=== PATIENT | male | born 1960 | race Caucasian/White ===

== ENCOUNTER 2022-04-21 12:19 | Outpatient (CLI) | payer BC, SELFPAY ==
--- NOTE | ~2022-04-21 | US_ITS ---
EXAMINATION: US venous doppler LE RT DATE: 04/21/2022 13:09 INDICATION: Acute deep vein thrombosis of femoral vein of right lower extremity. TECHNIQUE: Grayscale ultrasound images without and with compression and Doppler ultrasound images of the right lower extremity veins were obtained. COMPARISON: None. FINDINGS: The visualized portions of right common femoral vein, profunda (deep) femoral vein, femoral vein, pop liteal vein, peroneal veins, posterior tibial veins, and greater saphenous vein outflow are patent. IMPRESSION: 1. No deep venous thrombosis. Reviewed, dictated and finalized at location A.
== END 2022-04-21 12:20 | disposition home or self-care (01) ==
PROVIDERS: PCP Physician Assistant Medical; Visit Provider Internal Medicine Hematology & Oncology
DX: I82.411 Acute embolism and thrombosis of right femoral vein (principal)
CPT/HCPCS: 93971

== ENCOUNTER 2022-12-24 15:51 | Outpatient (CLI) | payer OTHER, SELFPAY ==
--- NOTE | ~2022-12-24 | CT_ITS ---
EXAMINATION: CT brain w con DATE: 12/24/2022 16:35 INDICATION: Headache. Lightheadedness. Dizziness. TECHNIQUE: Computed tomography (CT) of the head was performed with 100 mL Omnipaque 350 intravenous c ontrast. The mA was adjusted according to patient size. Iterative reconstruction technique was employ ed. The dose-length product was 605.33 mGy-cm. COMPARISON: Brain MRI 04/22/2017, head CT 01/11/2009 FINDINGS: There is no intracranial hemorrhage, acute infarction, or abnormal intracranial mass lesion . The ventricles are normal in size. The orbits are normal. The mastoid air cells are normal. The par anasal sinuses are clear. IMPRESSION: 1. Normal brain. Reviewed, dictated and finalized at location A. IMPRESSION: 1. Normal brain.
[2022-12-24 16:23] LABS: Estimated Glomerular Filt Rate > 60
== END 2022-12-24 15:52 | disposition home or self-care (01) ==
PROVIDERS: PCP Physician Assistant Medical; Visit Provider Family Medicine
DX: R51.9 Headache, unspecified (principal); G89.29 Other chronic pain; R42 Dizziness and giddiness
CPT/HCPCS: 70460; Q9967

== ENCOUNTER 2023-08-24 08:00 | Outpatient (RCR) | payer OTHER, SELFPAY ==
--- NOTE | 2023-07-15 14:33 | PTOPEVAL1 ---
Assessment and note entered by Meghan Paulson, PT Evaluation Information Assessment Status Evaluation Diagnosis Pain in left shoulder, oth. postprocedural states Additonal Therapy conditions Abnormal posture Subjective Information RTC in December 2019, did PT mulitple months after this . Reports 5 months to get back to normal. Just started having problems again in left side for about 6 months. took a nose dive off a trailer and thinks maybe martha it. Has done some things to it once slipped in a trailer and reached up to grab to stabilize. No obvious injury times. Will get achy in the shoulder and in the outside of the chest right hand dominant Has muscle relaxers if pain gets to intense Reported Pain Level Pain Score 0: Self Report Assessment PT Clinical Summary Pt presents with left shoulder pain approx 2 years post rotator cuff surgery. Doesn't remember any specific trauma since then however notes two incidents in which may have led to this pain. Reports main is 0-4/10, will have aching in shoulder and into left ribfield. Demo's soft tissue adhesions left rib field, decreased thoracic motion, decreased left shoulder motion, decreased scapular motion, abnormal postures and tight musculature. Pt will benefit from physical therapy to address deficits and improve function without pain. Plan of Care Interventions Electrical Stimulation,Hot Pack/Cold Pack,Manual Therapy,Neuro Re-education,Patient/Caregiver Educati,Therapeutic Activities,Therapeutic Exercise,Self-Care/Home Management,Ultrasound PT Services Indicated Yes Treatment Frequency and 1-2x weekly x 8 weeks Duration These treatments will address the objective and functional deficits as defined above. The patient will be advanced safely and appropriately in order for the patient to progress towards his/her prior level of function. Additional exercises will be introduced and as well as a comprehensive home exercise program upon discharge, if needed, ?to ensure carryover of functional gains achieved in the clinic. This treatment plan has been reviewed and agreement upon by the patient.
--- NOTE | 2023-07-15 14:35 | OPREHPOC ---
Outpatient Therapy Plan of Care This is a Multidisciplinary Plan of Care that may contain components documented by all disciplines (PT, OT, and ST.) PT Problem 1 PT Problem #1 Knowledge Deficit PT Goal 1 Goal Pt will be independent in HEP Pt will verbalize understanding of diagnosis and prognosis Target Visit 8 PT Problem 2 PT Problem #2 Pain PT Goal 1 Goal Pt will report greatest pain level at 2/10 or less to improve ADLs Target Visit 8 PT Goal 2 Goal Pt will report resolution of pain to return to PLOF Target Visit 16 PT Problem 3 PT Problem #3 Impaired Range of Motion PT Goal 1 Goal Pt will demo AROM equal to unaffected UE Target Visit 16 PT Goal 2 Goal Pt will demo improved pectoralis major flexibliity to allow imprpved scapular mobility Target Visit 16
--- NOTE | 2023-08-12 09:30 | PCPTNOTE ---
Patient presented to clinic 0800 stating he thought his appointment was at that time but that he realized it was actually at 9 am. As he had to get to work, he rescheduled his reevaluation.
--- NOTE | 2023-08-24 08:50 | PTOPDC ---
Assessment and note entered by Meghan Paulson, PT Assessment Status Discharge Diagnosis Pain in left shoulder, oth. postprocedural states Subjective Information Pt reports at times will feel better but this weekend had pain in the left side of the chest. Doesn't know if it is the way he slept, doesn't feel like he did anything physical. States with the cold damp weather arm will ache at times. Reports thinks pain is a little less often but when it hurts it is the same amount Today is sore in the armpit area. Reports hasn't had to take muscle relaxers in a while Reports exercises at home are going well Self-perceived improvement: 3-4% still aggravating Reported Pain Level Pain Score 2: Self Report Assessment PT Clinical Summary Pt has attended therapy consistently for left shoulder pain, reports being consistent in his exercises. However pt shows negligible progress and also reports only feeling 3-4% improved overall. Special testing today shows (+) Speeds test and audible clunk with [place] testing for impingement. Discussed plan of care and it was decided pt would benefit more from imaging/futher assessment from next level of care provider. Thus patient is being discharged at this time due to lack of progress and possible anatomical abnormalities requiring higher level of care.
== END 2023-08-24 11:16 | disposition home or self-care (01) ==
LOC: ANHHIPT 08:00
PROVIDERS: PCP Physician Assistant Medical; Visit Provider Family Medicine
DX: M25.512 Pain in left shoulder (principal); Z98.890 Other specified postprocedural states
CPT/HCPCS: 97014; 97110; 97112; 97140; 97162; 97750; G0283

== ENCOUNTER 2024-07-24 08:31 | Outpatient (CLI) | payer OTHER, SELFPAY ==
[2024-07-31 11:27] VITALS: BMI 27.3
--- NOTE | 2024-07-31 11:27 | WPDSLEEPSTUD ---
Sleep Study Date of Study: 07/24/24 Ordering Provider: David Friedman APRN Interpreting Physician: Pat Matthews DO Sleep Study Type: Split Polysomnogram Height: 1.7 m Weight: 79.379 kg Body Mass Index: 27.3 Neck Circumference (inches): 16.5 [place]: 10 Reason for Sleep Study Excessive daytime sleepiness Sleep History The patient is a 64-year-old male with previously diagnosed sleep apnea that had a sleep study ordered by the Pulmonary group [facility] the patient could read qualify for treatment. The patient occasionally awakens at night with heartburn, belching or cough. He frequently snores and is frequently loud enough that others complain. He occasionally has trouble sleeping when he has a cold. He rarely wakes up gasping for air throughout the night. He denies having breathing problems at night observed by himself or others. He rarely sweats excessively at night. He rarely has heart palpitations or irregular heartbeats during the night. He occasionally falls asleep during the day but rarely while driving. He denies sleep paralysis and cataplexy. He occasionally has trouble at school or work due to sleepiness. He occasionally experiences vivid dreamlike scenes upon awakening or falling asleep. He rarely feels afraid of going to sleep. He denies having nightmares. He occasionally remembers his dreams. He occasionally has thoughts racing through his mind. He rarely feels sad or depressed. He occasionally has anxiety. He occasionally has muscular tension. He rarely notices parts of his body jerk. He denies kicking during the night. He occasionally has crawling and aching feelings in his legs and occasionally has leg pain during the night. He occasionally grinds his teeth during sleep but rarely awakens with morning jaw pain. He is occasionally bothered by pain during the day and occasionally awakened by pain during the night. He occasionally wakes up feeling stiff in the morning. He occasionally wakes up with sore or achy muscles. He frequently wakes up with pain in the neck, spine or other joints. He goes to bed between 8:30-9 p.m. on weekdays and between 9-9:30 p.m. on the weekends. It takes him 45-60 minutes to fall asleep. He wakes up 3-5 times throughout the night for unknown reasons in the amount of time it takes for him to fall back asleep is variable. He typically gets 6-8 hours of sleep per night. He will stay in bed for 10-20 minutes after waking up to watch his. He currently lives with his female partner. He denies consuming any caffeinated beverages within 2 hours of bedtime. He denies engaging in physical exercise before bedtime. He will watch television before falling asleep. He denies taking naps in the afternoon or the evening. He consumes 2 caffeinated beverages per day. He quit smoking cigarettes 40 years ago. He consumes 1 alcoholic beverage per month. He denies recreational drug use. [facility] Past Medical History Medical History Hospital discharge follow-up Unstable angina Cellulitis Left shoulder pain Food poisoning Skin infection Low testosterone ROSALBA on CPAP 5-10 cm H2O, Provider Plus Dizziness Light headed Chronic headaches Squamous cell carcinoma Atypical nevi Skin growth Screening for cholesterol level Diaphoresis Viral gastroenteritis Prostatitis BPH (benign prostatic hyperplasia) Encounter for screening for malignant neoplasm of prostate History of esophageal stricture Anxiety Protein C deficiency DVT (deep venous thrombosis) R upper extremity 2016 R femoral 12/2021 History of basal cell carcinoma (BCC) Basal cell carcinoma of back High cholesterol Diverticulitis Hypertension Surgical History Surgical History History of appendectomy History of sinus surgery History of rotator cuff surgery left 2019 Family History Family History Sibling Cerebrovascular accident Sibling Protein C deficiency Other Diabetes mellitus Family history of heart disease in male family member before age 55 Family history of kidney disease Hypertension Social History Social History Smoking status: Former smoker Tobacco type: cigarettes Second hand tobacco smoke exposure: No Smoking end date: 08/22/86 Alcohol intake: current Alcohol use details: social Substance use: never Substance use type: does not use Do You Feel Safe in your Home?: Yes Lack of Transportation: No Lack of Food: Never True Current Housing: I Have Housing Concerned About Future Housing: No Difficulty Paying Gas/Electric Bills: No Difficulty Paying for Meds: No Currently Unemployed: No Education: High School Diploma/GED Difficulty w/ Childcare or Family Care: No Living arrangements: with family Additional living arrangements comments: girl friend Occupation/Education: occupation Gender identity (if verbalized by the patient): Male Sexual Orientation (if Verbalized by the Patient): Straight or Heterosexual Medications Home Medications ?Medication ?Instructions ?Recorded ?Confirmed ?Type diltiazem HCl 120 mg 120 mg PO DAILY 11/11/20 05/23/24 History capsule,extended release 24 hr, controlled (DILT-XR) fluticasone propionate 50 See Rx Instructions .Route 03/30/22 05/23/24 Rx mcg/actuation nasal .COMPLEX #48 grams spray,suspension lisinopril 10 mg tablet 20 mg PO DAILY 04/29/22 05/23/24 History folic acid 1 mg tablet 1 mg PO DAILY 06/09/22 05/23/24 History apixaban 2.5 mg tablet (Eliquis) 2.5 mg PO BID 08/13/22 05/23/24 History nitroglycerin 0.4 mg sublingual 0.4 mg sublingual Q5M PRN chest 01/05/24 05/23/24 Rx tablet pain #30 tabs pravastatin 40 mg tablet 40 mg PO DAILY #90 tabs 02/06/24 05/23/24 Rx escitalopram oxalate 5 mg tablet 5 mg PO DAILY #90 tabs 04/09/24 05/23/24 Rx lorazepam 0.5 mg tablet 0.5 mg PO QHS PRN sleep #30 tabs 04/09/24 05/23/24 Rx omeprazole 40 mg capsule,delayed 40 mg PO DAILY #90 caps 04/30/24 05/23/24 Rx release ondansetron 4 mg disintegrating 4 mg PO Q8H PRN nausea and 05/11/24 05/23/24 Rx tablet vomiting #10 tabs topiramate 25 mg capsule,extended 25 mg PO QHS 05/11/24 05/23/24 History release 24 hr eszopiclone 3 mg tablet 3 mg PO ONCE #1 tablet 05/18/24 05/23/24 Rx cyclobenzaprine 5 mg tablet 5 mg PO TID PRN muscle spasm #30 05/23/24 05/23/24 Rx tabs ezetimibe 10 mg tablet 10 mg PO DAILY #90 tabs 06/28/24 Rx Sleep Procedure A full night split study using the [employer] multi-channel system recorded the standard physiologic parameters including EEG, EOG, submentalis EMG, anterior tibialis EMG, EKG, body position, nasal and oral airflow using nasal pressure sensor and thermistor.? Respiratory parameters of chest and abdominal movements were recorded with Respiratory Inductance Plethysmography belts. Oxygen saturation was recorded by pulse oximetry. Video monitoring was also performed. Sleep stages, periodic limb movements, and EEG arousals were scored in 30 second epochs according to the criteria of the AASM Scoring Manual. The Apnea-Hypopnea Index was calculated using [facility] guidelines for definition of hypopnea with 4% O2 desaturations while scoring respiratory events. Sleep Architecture During the diagnostic portion of the study, the total recording time was 177.9 minutes. The total sleep time was 132.5 minutes. Sleep latency was 19.4 minutes.? REM sleep was not achieved during this portion of the study. Sleep Efficiency was 74.5%. The patient had 12 awakenings for an awakening index of 5.4. Wake after sleep onset time was 26.0 minutes. The patient spent 16.0 minutes, 12.1% of total sleep time in Stage N1. The patient spent 78.5 minutes, 59.2% in Stage N2. The patient spent 38.0 minutes, 28.7% in Stage N3. The patient spent 0.0 minutes, 0.0% in Stage REM sleep. At 12:54:01 AM the patient was placed on PAP treatment and was titrated at pressures ranging from 5 cm H20 up to 7 cm H20. During the treatment portion of the study, the total recording time was 276.3 minutes.? The total sleep time was 243.0 minutes. Sleep latency was 1.0 minutes. REM latency was 40.0 minutes. Sleep Efficiency was 88.0%. Wake after Sleep Onset time was 32.5 minutes. The patient spent 21.5 minutes, 8.8% of total sleep time in Stage N1. The patient spent 148.5 minutes, 61.1% in Stage N2. The patient spent 0.0 minutes, 0.0% in Stage N3. The patient spent 73.0 minutes, 30.0% in Stage REM. Respiratory Analysis During the diagnostic portion of the study, the patient had 17 hypopneas, 32 obstructive apneas and 2 mixed apneas for an overall Apnea Hypopnea Index of 23.1 events per hour. The REM Apnea Hypopnea Index was 0. The NREM Apnea Hypopnea Index was 23.1. The patient had a Central Apnea Hypopnea Index of 0. There was no evidence of [place] Respirations. During the treatment portion of the study, the patient had 2 hypopneas for an overall Apnea Hypopnea Index of 0.5 events per hour. The REM Apnea Hypopnea Index was 0.8. The NREM Apnea Hypopnea Index was 0.4. The patient had a Central Apnea Hypopnea Index of 0. There was no evidence of [place]ell Respirations. The patient was started on CPAP 5 cm H2O and titrated to CPAP 7 cm H2O due to hypopneas. The patient was able to fall asleep starting on CPAP 5 cm H2O. The patient was able to achieve REM sleep starting on CPAP 5 cm H2O. The patient was able to achieve a residual AHI less than 5 with both NREM and REM sleep in the supine position on the final pressure. On CPAP 7 cm H2O, the patient spent 106 minutes in NREM and 53 minutes in REM with 3 hypopneas, resulting in an AHI of 1.1. The patient had a sleep efficiency of 88.1% on this pressure setting. Arousals During the diagnostic portion of the study, there were a total of 55 arousals for an arousal index of 24.9.? There were 27 respiratory arousals for an index of 12.2. There were 1 periodic limb movement arousals for an index of 0.5.? There were 6 isolated limb movement arousals for an index of 2.7. There were 21 spontaneous arousals for an index of 9.5. During the treatment portion of the study, there were a total of 45 arousals for an index of 11.1.? There were 2 respiratory arousals for an index of 0.5. There were 5 periodic limb movement arousals for an index of 1.2.? There were 18 isolated limb movement arousals for an index of 4.4. There were 20 spontaneous arousals for an index of 4.9. Periodic Limb Movements During the diagnostic portion of the study, the patient had 9 isolated limb movements with an index of 4.1. The patient had 4 periodic limb movements with an index of 1.8. The patient had a total of 13 limb movements with a total limb movement index of 5.9. During the treatment portion of the study, the patient had 35 isolated limb movements with an index of 8.6. The patient had 8 periodic limb movements with an index of 2.0. The patient had a total of 43 limb movements with a total limb movement index of 10.6. Oximetry Data During the diagnostic portion of the study, the patient had an average oxygen saturation of 95.7% in wake with a minimum oxygen saturation of 87% and a maximum oxygen saturation of 99%. The patient had an average oxygen saturation of 93.5% in sleep with a minimum oxygen saturation of 81.0% and a maximum oxygen saturation of 98.0%. The patient had 57 oxygen desaturations resulting in an Oxygen Desaturation Index of 25.8. The patient spent 14.8 minutes, 8.4% of total sleep time with an oxygen saturation less than 88%. During the treatment portion of the study, the patient had an average oxygen saturation of 96.5% in wake with a minimum oxygen saturation of 91.0% and a maximum oxygen saturation of 99.0%. The patient had an average oxygen saturation of 94.6% in sleep with a minimum oxygen saturation of 89.0% and a maximum oxygen saturation of 99.0%. The patient had 13 oxygen desaturations resulting in an Oxygen Desaturation Index of 3.2. The patient spent 0 minutes of total sleep time with an oxygen saturation less than 88%. Snoring Profile Mild to moderate snoring was present in the baseline portion of the study. The snoring resolved once the patient was started on CPAP. Cardiac Profile The EKG lead showed normal sinus rhythm. No arrhythmias or PVCs were seen. During the diagnostic portion of the study, the average pulse rate was 50.4 bpm.? The minimum pulse rate was 44.0 bpm. The maximum pulse rate was 64.0 bpm. During the treatment portion of the study, the average pulse rate was 48.1 bpm.? The minimum pulse rate was 42.0 bpm. The maximum pulse rate was 63.0 bpm. EEG Profile No signs of seizure activity seen. Assessment and Plan Assessment and Plan (1) ROSALBA on CPAP: Code(s): G47.33 - Obstructive sleep apnea (adult) (pediatric) Status: Acute Assessment and Plan: In the baseline portion of the study, the patient had an overall AHI of 23.1 with desaturation down to 81%. This is consistent with moderate sleep apnea. The patient was started on CPAP 5 cm H2O and titrated to CPAP 7 cm H2O due to hypopneas. The patient's sleep apnea resolved on the final pressure. I recommend that the patient be prescribed CPAP 7 cm H2O, size medium F&P Eson 2 nasal mask, CPAP 7filters/tubing and heated humidity. This should be used with all episodes of sleep.? Compliance should be reviewed within 31-90 days of starting therapy for usage greater than 4 hours per night greater than 70% of the nights. The patient should be asked about symptoms such as?excessive daytime sleepiness, quality of sleep, decreased nocturia, increased?mental functioning such as memory, mood, and concentration. Data The data obtained during this sleep study is adequate for interpretation. Certification This sleep study has been reviewed by a board certified sleep medicine physician.
== END 2024-07-25 06:09 | disposition home or self-care (01) ==
LOC: ANHCSM 08:32
PROVIDERS: PCP Physician Assistant Medical; Visit Provider Nurse Practitioner Family
DX: G47.33 Obstructive sleep apnea (adult) (pediatric) (principal); G47.10 Hypersomnia, unspecified
CPT/HCPCS: 95811